=== PATIENT | male | born 1945 ===

== ENCOUNTER 2021-01-14 09:49 | Outpatient (CLI) | payer OTHER ==
[~2021-01-14 09:49] MED LIST: CATAFLAM50 MG PO; COZAAR100 MG PO; GABAPENTIN100 MG PO; METFORMIN HCL500 MG PO; ORPH100T PO; PAROXETINE HCL10 MG PO; PERCOCET 5/3251 TAB PO; XARELTO10 MG PO
== END 2021-01-14 09:58 | disposition home or self-care (01) ==
LOC: RAD 09:49
PROVIDERS: ATTEND Orthopaedic Surgery
DX: M25.551 Pain in right hip (principal); M25.552 Pain in left hip; M25.561 Pain in right knee; M25.562 Pain in left knee